=== PATIENT | female | born 1965 | race Caucasian/White ===

== ENCOUNTER → 2017-11-26 | Outpatient (CLI) | payer BC ==
[~2017-11-26] VITALS: Ht 162.6 cm; Wt 68.1 kg
[~2017-11-26] MED LIST: PROTONIX40 MG PO; ZITHROMAX250 MG PO
== END | disposition home or self-care (01) ==
LOC: AMB 12:00
PROC: 0DJ08ZZ Inspection of Upper Intestinal Tract, Via Natural or Artificial Opening Endoscopic (ICD-10-PCS; principal; 2017-11-26)
DX: K21.9 Gastro-esophageal reflux disease without esophagitis (principal); K44.9 Diaphragmatic hernia without obstruction or gangrene; J84.01 Alveolar proteinosis
CPT/HCPCS: J2250; J3010